=== PATIENT | female | born 1955 | race African-American/Black ===

== ENCOUNTER 2021-01-23 19:11 | Emergency (ER) | payer OTHER ==
[~2021-01-23] VITALS: Ht 160 cm; Wt 54.0 kg
[2021-01-23] MEDS ORDERED: LEVETIRACETAM 1000MG PREMIX 100 ML IV ONE (19:30)
[2021-01-23] MEDS ORDERED: SODIUM CHLORIDE 0.9% 1,000 ML IV ONE (19:30)
[2021-01-23 20:39] LABS: BASOPHILS % 1.2 % (0.0-2.0); EOSINOPHILS % 0.2 % (0.0-5.0); HEMATOCRIT. 38.1 % (36.0-48.0); HEMOGLOBIN. 13.3 g/dL (12.0-16.0); MEAN CORPUSCULAR HEMOGLOBIN 32.4 pg (28.0-32.0); MEAN CORPUSCULAR VOLUME 93.1 fL (81.0-99.0); MEAN PLATELET VOLUME 9.1 fl (7.4-10.4); MONOCYTES % 9.3 % (2.0-8.0); NEUTROPHILS % 47.3 % (40.0-76.0); PLATELET 137 x1000/uL (130-400); RED BLOOD CELL COUNT 4.09 mill/uL (4.2-5.4); RED CELL DISTRIBUTION WIDTH 13.1 % (11.6-14.6)
[2021-01-23 20:42] LABS: CHLORIDE 107 mEq/L (98-107)
[2021-01-23] MEDS ORDERED: LEVETIRACETAM 1000MG PREMIX 100 ML IV NR (20:45)
[2021-01-23 20:55] LABS: CARBAMAZEPINE < 0.5 ug/mL (4-12)
[2021-01-23 20:59] LABS: VALPROIC ACID <3.0 ug/mL ug/mL (50-100)
[2021-01-23 21:05] LABS: PHENOBARBITAL < 2.1 ug/mL (15.0-40.0)
[2021-01-23 23:29] VITALS: BP 156/100
== END 2021-01-23 23:37 | disposition home or self-care (01) ==
LOC: ER 19:11
DX: G40.909 Epilepsy, unspecified, not intractable, without status epilepticus (principal); R03.0 Elevated blood-pressure reading, without diagnosis of hypertension; R00.0 Tachycardia, unspecified
CPT/HCPCS: 36415; 80053; 80156; 80165; 80184; 80185; 85025; 93005; 96361; 96365; 96366; 99284; J1953; J7030

== ENCOUNTER 2022-02-23 16:34 | Inpatient (IN) | payer MEDICARE, MEDICAID ==
[~2022-02-23] VITALS: Ht 172.7 cm; Wt 60.8 kg
[2022-02-23] MEDS ORDERED: LEVETIRACETAM 1000MG PREMIX 100 ML IV ONE (16:45)
[2022-02-23] MEDS ORDERED: SODIUM CHLORIDE 0.9% 1,000 ML IV ONE (16:45)
[2022-02-23 18:40] LABS: BG BASE EXCESS -3.8 mmol/L (-2.0-2.0); BG CARBOXYHEMOGLOBIN 1.9 % (0.5-1.5); BG FRACTION INSPIRED OXYGEN 21; BG HCO3 ACT 20.5 mmol/L (22.0-26.0); BG METHEMOGLOBIN 0.2 % (0.0-1.5); BG OXYGEN SATURATION 95.9 % (92.0-98.5); BG OXYHEMOGLOBIN 93.9 % (94.0-97.0); BG PCO2 35.1 mmHg (35.0-45.0); BG PH 7.384 (7.350-7.450); BG PO2 81.2 mmHg (75.0-100.0); BG SAMPLE SITE RIGHT BRACHIAL; BG TOTAL HEMOGLOBIN 14.3 g/dL (12.0-18.0); BG VENT MODE ROOM AIR
[2022-02-23 18:40] LABS: BASOPHILS % 1.1 % (0.0-2.0); EOSINOPHILS % 0.1 % (0.0-5.0); HEMATOCRIT. 42.6 % (36.0-48.0); HEMOGLOBIN. 14.1 g/dL (12.0-16.0); MEAN CORPUSCULAR HEMOGLOBIN 30.5 pg (28.0-32.0); MEAN CORPUSCULAR VOLUME 92.2 fL (81.0-99.0); MEAN PLATELET VOLUME 8.6 fl (7.4-10.4); MONOCYTES % 10.1 % (2.0-8.0); NEUTROPHILS % 58.7 % (40.0-76.0); PLATELET 190 x1000/uL (130-400); RED BLOOD CELL COUNT 4.62 mill/uL (4.2-5.4)
[2022-02-23 18:42] LABS: CHLORIDE 105 mEq/L (98-107)
[2022-02-23 18:53] LABS: CREATINE KINASE 96 IU/L (26-192); ETHANOL BLOOD < 10 mg/dL
[2022-02-23 19:34] LABS: CLARITY URINE CLEAR (CLEAR); COLOR URINE YELLOW (YELLOW); KETONES URINE NEGATIVE (NEGATIVE); LEUKOCYTE ESTERASE URINE NEGATIVE (NEGATIVE); NITRITE URINE NEGATIVE (NEGATIVE); OCCULT BLOOD URINE NEGATIVE (NEGATIVE); PROTEIN URINE NEGATIVE (NEGATIVE); SPECIFIC GRAVITY URINE 1.008 (1.005-1.030); UROBILINOGEN URINE 0.2 E.U./dL (0.2-1.0)
[2022-02-23 19:58] LABS: *AMPHETAMINES SCREEN URINE NEGATIVE (NEGATIVE); *BARBITURATES SCREEN URINE NEGATIVE (NEGATIVE); *BENZODIAZEPINES SCREEN URINE NEGATIVE (NEGATIVE); *COCAINE SCREEN URINE NEGATIVE (NEGATIVE); CANNABINOID URINE SCREEN NEGATIVE (NEGATIVE); METHADONE URINE SCREEN NEGATIVE (NEGATIVE); OPIATES URINE SCREEN NEGATIVE (NEGATIVE); PHENCYCLIDINE URINE SCREEN NEGATIVE (NEGATIVE)
[2022-02-23] MEDS ORDERED: MIDAZOLAM HCL 2 MG/2 ML VIAL IV ONE (20:30)
[2022-02-23] MEDS ORDERED: MIDAZOLAM HCL 2 MG/2 ML VIAL IV NR (20:45)
[2022-02-23] MEDS ORDERED: HYDRALAZINE 20MG/ML VIAL IV ONE (21:15)
[2022-02-24] MEDS ORDERED: HYDRALAZINE 20MG/ML VIAL IV NR (03:45)
[2022-02-24] MEDS ORDERED: ONDANSETRON HCL 4MG/2ML INJ IV PRN (06:00)
[2022-02-24] MEDS: LISINOPRIL 10MG TABLET PO SCH (06:00)
[2022-02-24] MEDS ORDERED: DOCUSATE SODIUM 100MG CAPSULE PO PRN (06:00)
[2022-02-24] MEDS ORDERED: MAGNESIUM/ALUMINUM HYDROXIDE/SIMETHICONE 30ML UDC PO PRN (06:00)
[2022-02-24] MEDS ORDERED: GUAIFENESIN 200MG/10ML SUGAR FREE UDC PO PRN (06:00)
[2022-02-24] MEDS ORDERED: TRAMADOL 50MG TABLET PO PRN (06:00)
[2022-02-24] MEDS ORDERED: ACETAMINOPHEN 325MG TABLET PO PRN (06:00)
[2022-02-24] MEDS ORDERED: SODIUM CHLORIDE 0.45% 1,000 ML IV SCH (06:00)
[2022-02-24] MEDS ORDERED: NALOXONE HCL 0.4MG/ML VIAL IV PRN (06:15)
[2022-02-24] MEDS: AMLODIPINE 10MG TABLET PO SCH (06:30)
[2022-02-24] MEDS: ENOXAPARIN 40MG/0.4ML SYR SUBCUT SCH (09:02)
[2022-02-24] MEDS: LEVETIRACETAM 500MG/5ML CUP PO SCH ×2 (09:03→20:23)
[2022-02-24 10:50] VITALS: BP 132/55
[2022-02-24 11:29] VITALS: BP 132/55
[2022-02-24 16:00] VITALS: BP 171/77
[2022-02-24] MEDS ORDERED: HYDRALAZINE 20MG/ML VIAL IV PRN (17:30)
[2022-02-24] MEDS ORDERED: DILTIAZEM HCL 30MG TABLET PO PRN (19:15)
[2022-02-24 20:00] VITALS: BP 150/80
[2022-02-24] MEDS: HYDROCODONE/ACETAMINOPHEN 5/325MG TABLET PO PRN (20:23)
[2022-02-24] MEDS ORDERED: TRAZODONE HCL 50MG TABLET PO SCH (21:00)
[2022-02-25] VITALS: BP 120/60
[2022-02-25 04:00] VITALS: BP 109/55
[2022-02-25] MEDS: HYDROCODONE/ACETAMINOPHEN 5/325MG TABLET PO PRN (05:51)
[2022-02-25 08:00] VITALS: BP 109/68
[2022-02-25] MEDS: AMLODIPINE 10MG TABLET PO SCH (09:00)
[2022-02-25] MEDS ORDERED: LAMOTRIGINE 25MG TABLET PO SCH (09:00)
[2022-02-25] MEDS: LISINOPRIL 10MG TABLET PO SCH (09:00)
[2022-02-25] MEDS: LEVETIRACETAM 500MG/5ML CUP PO SCH (10:18)
[2022-02-25] MEDS: ENOXAPARIN 40MG/0.4ML SYR SUBCUT SCH (10:18)
[2022-02-25 12:00] VITALS: BP 95/57
[2022-02-25 13:17] VITALS: BP 95/57
[2022-02-25 15:50] VITALS: BP 144/72
== END 2022-02-25 15:58 | disposition left against medical advice (07) | DRG 101 ==
LOC: ER 16:34 → MICUSO 21:15 → EDBEDREQTM 21:26 → EDBEDREQ 21:26 → EDBEDREQSVC 21:26 → 6WST 02-24 10:51
PROVIDERS: ADMIT Hospitalist; ATTEND Hospitalist
DX: G40.909 Epilepsy, unspecified, not intractable, without status epilepticus (principal); I10 Essential (primary) hypertension; R73.9 Hyperglycemia, unspecified; F17.210 Nicotine dependence, cigarettes, uncomplicated; F41.9 Anxiety disorder, unspecified; Z53.29 Procedure and treatment not carried out because of patient's decision for other reasons; Z91.19 Patient's noncompliance with other medical treatment and regimen; I69.998 Other sequelae following unspecified cerebrovascular disease
CPT/HCPCS: 36415; 36600; 71045; 80053; 80305; 80320; 81003; 82375; 82550; 82805; 83880; 84484; 85025; 93005; 93970; 95816; 99291; J0360; J1650; J1953; J2250; J7030; G0480

== ENCOUNTER 2022-10-10 09:31 | Emergency (ER) | payer BC, MEDICAID ==
[~2022-10-10] VITALS: Ht 172.7 cm; Wt 64.0 kg
[2022-10-10 11:17] LABS: HEMATOCRIT. 39.9 % (36.0-48.0); HEMOGLOBIN. 13.8 g/dL (12.0-16.0); MEAN CORPUSCULAR HEMOGLOBIN 31.3 pg (28.0-32.0); MEAN CORPUSCULAR VOLUME 90.8 fL (81.0-99.0); MEAN PLATELET VOLUME 9.3 fl (7.4-10.4); PLATELET 110 x1000/uL (130-400); RED CELL DISTRIBUTION WIDTH 13.9 % (11.6-14.6)
[2022-10-10 11:29] LABS: CHLORIDE 102 mEq/L (98-107)
[2022-10-10 11:41] LABS: ETHANOL BLOOD < 10 mg/dL
[2022-10-10 11:48] LABS: CLARITY URINE CLEAR (CLEAR); COLOR URINE YELLOW (YELLOW); KETONES URINE NEGATIVE (NEGATIVE); LEUKOCYTE ESTERASE URINE 2+ (NEGATIVE); NITRITE URINE NEGATIVE (NEGATIVE); OCCULT BLOOD URINE NEGATIVE (NEGATIVE); PH URINE 5.5 (4.5-8.0); PROTEIN URINE NEGATIVE (NEGATIVE); SPECIFIC GRAVITY URINE 1.007 (1.005-1.030); UROBILINOGEN URINE 0.2 E.U./dL (0.2-1.0)
[2022-10-10 11:55] LABS: PLATELET ESTIMATE DECREASED
[2022-10-10] MEDS ORDERED: LEVETIRACETAM 500MG PREMIX 100 ML IV ONE (12:30)
[2022-10-10 14:18] LABS: *AMPHETAMINES SCREEN URINE NEGATIVE (NEGATIVE); *BARBITURATES SCREEN URINE NEGATIVE (NEGATIVE); *BENZODIAZEPINES SCREEN URINE NEGATIVE (NEGATIVE); *COCAINE SCREEN URINE NEGATIVE (NEGATIVE); CANNABINOID URINE SCREEN NEGATIVE (NEGATIVE); METHADONE URINE SCREEN NEGATIVE (NEGATIVE); OPIATES URINE SCREEN NEGATIVE (NEGATIVE); PHENCYCLIDINE URINE SCREEN NEGATIVE (NEGATIVE)
[2022-10-10 16:09] VITALS: BP 111/67
== END 2022-10-10 16:09 | disposition home or self-care (01) ==
LOC: ER 10:01
DX: G40.909 Epilepsy, unspecified, not intractable, without status epilepticus (principal); E87.6 Hypokalemia; G93.89 Other specified disorders of brain
CPT/HCPCS: 36415; 70450; 71045; 80053; 80305; 80307; 80320; 80329; 81003; 82140; 83735; 84443; 84484; 85025; 93005; 96365; 96366; 99285; J1953; G0480

== ENCOUNTER 2022-10-11 00:43 | Inpatient (IN) | payer BC, MEDICAID ==
[~2022-10-11] VITALS: Ht 165.1 cm; Wt 60.8 kg
[2022-10-11] MEDS ORDERED: LORAZEPAM 2MG/ML CPJ IM ONE (01:30)
[2022-10-11] MEDS ORDERED: HALOPERIDOL LACTATE 5MG/ML VIAL IM ONE (02:45)
[2022-10-11 03:04] LABS: HEMATOCRIT. 37.9 % (36.0-48.0); HEMOGLOBIN. 12.8 g/dL (12.0-16.0); MEAN CORPUSCULAR HEMOGLOBIN 31.1 pg (28.0-32.0); MEAN CORPUSCULAR VOLUME 92.2 fL (81.0-99.0); MEAN PLATELET VOLUME 9.5 fl (7.4-10.4); PLATELET 99 x1000/uL (130-400); RED BLOOD CELL COUNT 4.11 mill/uL (4.2-5.4); RED CELL DISTRIBUTION WIDTH 14.2 % (11.6-14.6)
[2022-10-11 03:09] LABS: CHLORIDE 107 mEq/L (98-107)
[2022-10-11 03:17] LABS: ETHANOL BLOOD < 10 mg/dL
[2022-10-11] MEDS ORDERED: POTASSIUM CHLORIDE 20MEQ/PACKET PO NR (04:45)
[2022-10-11 08:19] LABS: PLATELET ESTIMATE DECREASED
[2022-10-11 16:00] VITALS: BP 128/88
[2022-10-11] MEDS ORDERED: POTASSIUM CHLORIDE 20MEQ TABLET SR PO NR (18:15)
[2022-10-11] MEDS ORDERED: LORAZEPAM 1MG TABLET PO PRN (18:15)
[2022-10-11] MEDS ORDERED: HALOPERIDOL 5MG TABLET PO PRN (18:15)
[2022-10-11 18:46] VITALS: BP 137/72
[2022-10-12 04:00] VITALS: BP 152/94
[2022-10-12 08:00] VITALS: BP 103/80
[2022-10-12 12:00] VITALS: BP 125/69
[2022-10-12 16:00] VITALS: BP 136/86
[2022-10-12 20:00] VITALS: BP 150/85
[2022-10-13] VITALS: BP 152/82
[2022-10-13 04:00] VITALS: BP 149/87
[2022-10-13 11:46] VITALS: BP 170/91
[2022-10-13 16:00] VITALS: BP 197/108
[2022-10-13] MEDS: QUETIAPINE FUMARATE 25MG TABLET PO SCH (21:19)
[2022-10-14 08:00] VITALS: BP 158/105
[2022-10-14] MEDS: QUETIAPINE FUMARATE 25MG TABLET PO SCH (08:48)
[2022-10-14] MEDS ORDERED: AMLODIPINE 10MG TABLET PO SCH (09:00)
[2022-10-14 12:00] VITALS: BP 127/85
[2022-10-14] MEDS ORDERED: QUET25TA PO (13:35)
[2022-10-14 16:00] VITALS: BP 165/88
[2022-10-14 16:40] VITALS: BP 165/88
== END 2022-10-14 16:55 | disposition home or self-care (01) | DRG 71 ==
LOC: ER 00:43 → 6EST 01:21 → ENRESERV 16:00
PROVIDERS: ADMIT Internal Medicine; ATTEND Internal Medicine
DX: G93.40 Encephalopathy, unspecified (principal); F03.911 Unspecified dementia, unspecified severity, with agitation; E87.6 Hypokalemia; F43.21 Adjustment disorder with depressed mood; R74.01 Elevation of levels of liver transaminase levels; R45.1 Restlessness and agitation
CPT/HCPCS: 36415; 80053; 80307; 80320; 80329; 85025; 99285; C1893; J1630; J2060; G0480